=== PATIENT | male | born 1995 | race Two or more races ===

== ENCOUNTER 2021-10-02 12:20 | Inpatient (IN) | payer BC ==
[~2021-10-02] VITALS: Ht 149.9 cm; Wt 61.4 kg
[2021-10-02 12:51] LABS: BASOPHILS % (AUTO) 0.5 % (0-1); EOSINOPHILS # (AUTO) 0.1 X10'3 (0-0.9); HEMATOCRIT 41.7 % (42.0-52.0); HEMOGLOBIN 13.8 g/dl (14.0-17.9); LYMPHOCYTES # (AUTO) 1.9 X10'3 (1.1-4.8); LYMPHOCYTES % (AUTO) 40.7 % (21-51); MEAN CORPUSCULAR HEMOGLOBIN 25.1 PG (27.0-31.0); MEAN CORPUSCULAR HGB CONC 32.9 g/dL (33.0-36.5); MEAN CORPUSCULAR VOLUME 76.2 FL (78-98); MEAN PLATELET VOLUME 7.4 FL (7.4-10.4); MONOCYTES # (AUTO) 0.4 X10'3 (0-0.9); MONOCYTES % (AUTO) 9.4 % (2-12); NEUTROPHILS # (AUTO) 2.2 X10'3 (1.8-7.7); NEUTROPHILS % (AUTO) 47.4 % (42-75); PLATELET COUNT 311 X10'3 (140-440); RED BLOOD COUNT 5.48 X10'6 (4.70-6.10); RED CELL DISTRIBUTION WIDTH 14.3 % (11.5-14.5); WHITE BLOOD COUNT 4.7 X10'3 (4.5-11.0)
[2021-10-02 13:08] LABS: ALANINE AMINOTRANSFERASE 25 U/L (12-78); ALBUMIN 4.3 G/DL (3.4-5.0); ALKALINE PHOSPHATASE 85 IU/L (46-116); ANION GAP 9 (8-16); ASPARTATE AMINO TRANSFERASE 17 U/L (10-37); BILIRUBIN,TOTAL 0.3 MG/DL (0.1-1.0); BLOOD UREA NITROGEN 13 MG/DL (7-18); BUN/CREATININE RATIO 14.1 (5.4-32.0); CALCIUM 9.1 MG/DL (8.5-10.1); CHLORIDE 104 MMOL/L (99-107); CREATININE 0.92 MG/DL (0.60-1.10); GLUCOSE 93 MG/DL (70-104); POTASSIUM 3.7 MMOL/L (3.5-5.1); SODIUM 139 MMOL/L (135-145); TOTAL CARBON DIOXIDE 25.8 MMOL/L (24-32); TOTAL PROTEIN 8.6 G/DL (6.4-8.2); eGFR > 90 ML/MIN
[2021-10-02 13:54] LABS: CLARITY,URINE CLEAR (Clear); COLOR,URINE YELLOW (Yellow); GLUCOSE, URINE NEGATIVE (Neg); KETONES,URINE NEGATIVE (Neg); LEUKOCYTE ESTERASE ,URINE NEGATIVE (Neg); NITRITES, URINE NEGATIVE (Neg); OCCULT BLOOD,URINE NEGATIVE (Neg); PROTEIN,URINE NEGATIVE (Neg); UROBILINOGEN,URINE 0.2 E.U/dL (0.2-1.0)
[2021-10-02 14:09] LABS: UA COLLECTION TYPE NON-SPECIFIED
[2021-10-02] MEDS ORDERED: normal saline 1000ML IV soln IVB ONE (14:40)
[2021-10-02] MEDS ORDERED: ketorolac tromethamine 15mg/ml inj. IV ONE (14:40)
[2021-10-02] MEDS ORDERED: iohexol 300mg/ml 100ml inj. ONE (14:54)
[2021-10-02] MEDS ORDERED: ketorolac trometh. 30mg/ml inj. IV ONE (15:05)
--- NOTE | 2021-10-02 15:51 | NUR ---
PT TO CT
--- NOTE | 2021-10-02 16:05 | NUR ---
RETURNED FROM CT WITHOUT INCIDENT, FLUIDS RE-STARTED.
--- NOTE | 2021-10-02 16:42 | NUR ---
ADMITTING PROVIDER AT BEDSIDE
[2021-10-02] MEDS ORDERED: NO HOME MEDS (17:00)
[2021-10-02] MEDS ORDERED: magnesium 2GM in 50ml NS 50 ML IV PRN (17:50)
[2021-10-02] MEDS ORDERED: magnesium Cl slow-release 64mg tablet PO PRN (17:50)
[2021-10-02] MEDS ORDERED: potassium CL 10mEq/100ml bag 100 ML IV PRN (17:50)
[2021-10-02] MEDS ORDERED: acetaminophen 325mg tablet PO PRN (17:50)
[2021-10-02] MEDS ORDERED: potassium Cl 20 mEq SR tablet PO PRN ×2 (17:50)
[2021-10-02] MEDS ORDERED: magnesium 4gm in 100ml NS 100 ML IV PRN (17:50)
[2021-10-02] MEDS: morphine 2 MG/ML inj. syringe IV PRN ×2 (19:18→23:04)
[2021-10-02] MEDS: ondansetron/PF 4mg/2ml inj IV PRN (19:18)
[2021-10-02 19:20] LABS: MAGNESIUM 2.1 MG/DL (1.5-2.4)
[2021-10-02] MEDS: K and/or MAG REPLACEMENT MC SCH (20:00)
[2021-10-02] MEDS: normal saline 1000ml 1,000 ML IV SCH (21:00)
[2021-10-02 21:13] VITALS: BP 130/83
[2021-10-03] VITALS: BP 105/64
[2021-10-03] MEDS: morphine 2 MG/ML inj. syringe IV PRN ×5 (03:04→23:57)
[2021-10-03] MEDS: normal saline 1000ml 1,000 ML IV SCH ×3 (05:28→16:50)
[2021-10-03 06:04] LABS: HEMOGLOBIN 11.5 g/dl (14.0-17.9); LYMPHOCYTES # (AUTO) 2.3 X10'3 (1.1-4.8); MEAN CORPUSCULAR VOLUME 77.3 FL (78-98); MEAN PLATELET VOLUME 8.7 FL (7.4-10.4); MONOCYTES # (AUTO) 0.5 X10'3 (0-0.9); WHITE BLOOD COUNT 4.2 X10'3 (4.5-11.0)
[2021-10-03 06:05] LABS: ANION GAP 14 (8-16); BLOOD UREA NITROGEN 12 MG/DL (7-18); BUN/CREATININE RATIO 16.7 (5.4-32.0); CALCIUM 7.6 MG/DL (8.5-10.1); CHLORIDE 108 MMOL/L (99-107); CREATININE 0.72 MG/DL (0.60-1.10); GLUCOSE 71 MG/DL (70-104); POTASSIUM 3.7 MMOL/L (3.5-5.1); SODIUM 142 MMOL/L (135-145); TOTAL CARBON DIOXIDE 20.1 MMOL/L (24-32); eGFR > 90 ML/MIN
[2021-10-03 06:08] LABS: BASOPHILS % (AUTO) 0.6 % (0-1); EOSINOPHILS # (AUTO) 0.1 X10'3 (0-0.9); EOSINOPHILS % (AUTO) 3.3 % (0-6); HEMATOCRIT 34.3 % (42.0-52.0); LYMPHOCYTES % (AUTO) 53.7 % (21-51); MEAN CORPUSCULAR HGB CONC 33.6 g/dL (33.0-36.5); NEUTROPHILS # (AUTO) 1.3 X10'3 (1.8-7.7); NEUTROPHILS % (AUTO) 31.4 % (42-75); PLATELET COUNT 158 X10'3 (140-440); RED BLOOD COUNT 4.44 X10'6 (4.70-6.10); RED CELL DISTRIBUTION WIDTH 14.3 % (11.5-14.5)
--- NOTE | 2021-10-03 06:20 | NUR ---
Problems reprioritized. Patient report given, questions answered & plan of care reviewed with IDALMIS Jaffe. Addendum: 10/03/21 at 2018 by Azalia Waddell RN [facility], wrong time
[2021-10-03 06:30] VITALS: BP 104/82
--- NOTE | 2021-10-03 06:30 | NUR ---
Patient in room [facility]. I have received report from IDALMIS Cesar and had the opportunity to ask questions and assume patient care.
[2021-10-03] MEDS: K and/or MAG REPLACEMENT MC SCH ×2 (07:31→20:00)
[2021-10-03] MEDS: ondansetron/PF 4mg/2ml inj IV PRN (09:35)
[2021-10-03 11:00] VITALS: BP 100/69
[2021-10-03] MEDS: diatr meglu/diatrizoate 30ml oral sol.-(3 dose) bottle PO SCH ×3 (11:09→16:37)
--- NOTE | 2021-10-03 18:20 | NUR ---
Problems reprioritized. Patient report given, questions answered & plan of care reviewed with IDALMIS Jaffe.
[2021-10-03 19:45] VITALS: BP 103/62
[2021-10-03] MEDS ORDERED: ketorolac trometh. 30mg/ml inj. IM PRN (20:00)
[2021-10-04] VITALS: BP 89/56
[2021-10-04 05:49] LABS: BASOPHILS % (AUTO) 0.6 % (0-1); EOSINOPHILS # (AUTO) 0.1 X10'3 (0-0.9); EOSINOPHILS % (AUTO) 3.2 % (0-6); HEMOGLOBIN 11.2 g/dl (14.0-17.9); LYMPHOCYTES % (AUTO) 54.1 % (21-51); MEAN CORPUSCULAR HEMOGLOBIN 25.4 PG (27.0-31.0); MEAN CORPUSCULAR HGB CONC 32.9 g/dL (33.0-36.5); MEAN CORPUSCULAR VOLUME 77.2 FL (78-98); MEAN PLATELET VOLUME 7.7 FL (7.4-10.4); MONOCYTES # (AUTO) 0.4 X10'3 (0-0.9); MONOCYTES % (AUTO) 11.4 % (2-12); NEUTROPHILS # (AUTO) 1.1 X10'3 (1.8-7.7); NEUTROPHILS % (AUTO) 30.7 % (42-75); PLATELET COUNT 224 X10'3 (140-440); RED CELL DISTRIBUTION WIDTH 14.3 % (11.5-14.5); WHITE BLOOD COUNT 3.6 X10'3 (4.5-11.0)
[2021-10-04 05:54] LABS: ALBUMIN 2.8 G/DL (3.4-5.0); ANION GAP 6 (8-16); BLOOD UREA NITROGEN 6 MG/DL (7-18); BUN/CREATININE RATIO 7.2 (5.4-32.0); CALCIUM 7.6 MG/DL (8.5-10.1); CHLORIDE 110 MMOL/L (99-107); CREATININE 0.83 MG/DL (0.60-1.10); GLUCOSE 79 MG/DL (70-104); POTASSIUM 3.7 MMOL/L (3.5-5.1); SODIUM 141 MMOL/L (135-145); TOTAL CARBON DIOXIDE 25.5 MMOL/L (24-32); eGFR > 90 ML/MIN
--- NOTE | 2021-10-04 06:10 | NUR ---
Patient in room [facility]. I have received report from IDALMIS Jaffe and had the opportunity to ask questions and assume patient care.
[2021-10-04 06:30] VITALS: BP 102/69
[2021-10-04] MEDS: K and/or MAG REPLACEMENT MC SCH (07:10)
[2021-10-04] MEDS: ketorolac trometh. 30mg/ml inj. IV PRN ×2 (07:36→14:00)
[2021-10-04 08:11] LABS: LARGE PLATELETS FEW; PLATELET ESTIMATE NORMAL; TOTAL CELLS COUNTED 100
[2021-10-04] MEDS: normal saline 1000ml 1,000 ML IV SCH (09:50)
[2021-10-04 11:00] VITALS: BP 120/77
[2021-10-04] MEDS ORDERED: LEVO500T90 PO (11:28)
[2021-10-04] MEDS ORDERED: METR-159 PO (11:28)
--- NOTE | 2021-10-04 14:40 | NUR ---
DC inst provided to pt. IV DC'd, tip intact. All belongings sent w/pt. Pt ambulated to vehicle.
== END 2021-10-04 14:30 | disposition home or self-care (01) | DRG 392 ==
LOC: ER 12:21 → ED HOLD 17:50 → SUR 3N 20:30
PROVIDERS: ADMIT Internal Medicine; ATTEND Internal Medicine
PROC: BW211ZZ Computerized Tomography (CT Scan) of Abdomen and Pelvis using Low Osmolar Contrast (ICD-10-PCS; principal; 2021-10-02)
DX: R10.31 Right lower quadrant pain (principal); Q43.0 Meckel's diverticulum (displaced) (hypertrophic)
CPT/HCPCS: 36415; 74176; 74177; 80048; 80053; 81003; 83605; 83735; 84145; 85007; 85025; 87040; 87081; 96374; 99285; G0378; J1885; J2270; J2405; J7030; Q9963; Q9967

== ENCOUNTER 2022-02-14 10:37 | Emergency (ER) | payer SELFPAY ==
[~2022-02-14] VITALS: Ht 149.9 cm; Wt 58.2 kg
[~2022-02-14 10:37] MED LIST: NO HOME MEDS
[2022-02-14 10:49] VITALS: BP 126/85
[2022-02-14] MEDS ORDERED: ketorolac trometh. 30mg/ml inj. IM ONE (11:10)
[2022-02-14] MEDS ORDERED: orphenadrine citrate 60mg/2ml inj. IM ONE (11:25)
[2022-02-14 11:47] LABS: CLARITY,URINE CLEAR (Clear); COLOR,URINE YELLOW (Yellow); GLUCOSE, URINE NEGATIVE (Neg); KETONES,URINE NEGATIVE (Neg); LEUKOCYTE ESTERASE ,URINE NEGATIVE (Neg); NITRITES, URINE NEGATIVE (Neg); OCCULT BLOOD,URINE NEGATIVE (Neg); PROTEIN,URINE NEGATIVE (Neg); UROBILINOGEN,URINE 0.2 E.U/dL (0.2-1.0)
[2022-02-14 11:49] LABS: UA COLLECTION TYPE NON-SPECIFIED
[2022-02-14] MEDS ORDERED: IBUP-1986 PO (12:12)
[2022-02-14] MEDS ORDERED: CYCL-394 PO (12:12)
== END 2022-02-14 12:28 | disposition home or self-care (01) ==
LOC: ER 10:38
DX: M54.59 Other low back pain (principal); K59.00 Constipation, unspecified
CPT/HCPCS: 81003; 96372; 99284; J1885; J2360

== ENCOUNTER 2022-05-03 09:32 | Emergency (ER) | payer MEDICAID ==
[~2022-05-03] VITALS: Ht 149.9 cm; Wt 56.8 kg
[~2022-05-03 09:32] MED LIST changes: +IBUP-1986 PO
[2022-05-03 09:38] VITALS: BP 154/121
[2022-05-03] MEDS ORDERED: LORazepam 1 MG tablet PO ONE (09:55)
[2022-05-03 10:15] LABS: ALANINE AMINOTRANSFERASE 21 U/L (12-78); ALBUMIN 4.5 G/DL (3.4-5.0); ALBUMIN/GLOBULIN RATIO 1.1 (1.1-1.5); ALKALINE PHOSPHATASE 78 IU/L (46-116); ANION GAP 10 (8-16); ASPARTATE AMINO TRANSFERASE 24 U/L (10-37); BILIRUBIN,TOTAL 0.4 MG/DL (0.1-1.0); BLOOD UREA NITROGEN 13 MG/DL (7-18); BUN/CREATININE RATIO 15.3 (5.4-32.0); CHLORIDE 103 MMOL/L (99-107); CREATININE 0.85 MG/DL (0.60-1.10); GLUCOSE 108 MG/DL (70-104); POTASSIUM 3.7 MMOL/L (3.5-5.1); SODIUM 139 MMOL/L (135-145); TOTAL CARBON DIOXIDE 26.2 MMOL/L (24-32); TOTAL PROTEIN 8.5 G/DL (6.4-8.2); eGFR > 90 ML/MIN
[2022-05-03 10:17] LABS: UA COLLECTION TYPE CLN CATCH MIDSTREAM
[2022-05-03 10:18] LABS: BASOPHILS % (AUTO) 0.6 % (0-1); EOSINOPHILS % (AUTO) 0.7 % (0-6); HEMATOCRIT 42.7 % (42.0-52.0); HEMOGLOBIN 14.1 g/dl (14.0-17.9); LYMPHOCYTES # (AUTO) 1.8 X10'3 (1.1-4.8); LYMPHOCYTES % (AUTO) 32.4 % (21-51); MEAN CORPUSCULAR HEMOGLOBIN 24.9 PG (27.0-31.0); MEAN CORPUSCULAR HGB CONC 33.1 g/dL (33.0-36.5); MEAN CORPUSCULAR VOLUME 75.1 FL (78-98); MEAN PLATELET VOLUME 7.6 FL (7.4-10.4); MONOCYTES # (AUTO) 0.4 X10'3 (0-0.9); MONOCYTES % (AUTO) 7.3 % (2-12); NEUTROPHILS # (AUTO) 3.2 X10'3 (1.8-7.7); PLATELET COUNT 322 X10'3 (140-440); RED BLOOD COUNT 5.69 X10'6 (4.70-6.10); RED CELL DISTRIBUTION WIDTH 15.5 % (11.5-14.5); WHITE BLOOD COUNT 5.5 X10'3 (4.5-11.0)
[2022-05-03 10:18] LABS: CLARITY,URINE CLEAR (Clear); COLOR,URINE YELLOW (Yellow); GLUCOSE, URINE NEGATIVE (Neg); KETONES,URINE 40 mg/dl (Neg); LEUKOCYTE ESTERASE ,URINE NEGATIVE (Neg); NITRITES, URINE NEGATIVE (Neg); OCCULT BLOOD,URINE NEGATIVE (Neg); PROTEIN,URINE NEGATIVE (Neg); UROBILINOGEN,URINE 0.2 E.U/dL (0.2-1.0)
[2022-05-03 10:23] LABS: ETHANOL < 0.010 GM/DL (0.0-0.010)
[2022-05-03 10:28] LABS: URINE AMPHETAMINE SCREEN NEGATIVE (Neg); URINE BARBITUATE SCREEN NEGATIVE (Neg); URINE BENZODIAZEPINES SCREEN NEGATIVE (Neg); URINE CANNABINOID SCREEN NEGATIVE (Neg); URINE COCAINE SCREEN NEGATIVE (Neg); URINE METHADONE SCREEN NEGATIVE (Neg); URINE OPIATE SCREEN NEGATIVE (Neg); URINE PHENCYCLIDINE SCREEN NEGATIVE (Neg)
--- NOTE | 2022-05-03 10:42 | NUR ---
Per pt. no information is to be given to Henri George (boyfriend) for the time being.
--- NOTE | 2022-05-03 10:45 | NUR ---
Patient crying and RN at bedside. Patient states he feels hopeless and helpless. Patient gave his house to his 5 year live in boyfriend and now he has someone else living there. Patient states his best friend committed suicide about 2 months ago. Patient doesn't have any friends and feels all alone. Patient's family lives in [place] and they have disowned him. Patient states he has nothing to live for. 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 Patient has HX of HIV.
[2022-05-03] MEDS ORDERED: EMTR1TAB24 PO (11:12)
[2022-05-03] MEDS ORDERED: RALT400T PO (11:12)
--- NOTE | 2022-05-03 11:18 | NUR ---
Patient's friend, [place], visiting patient. No distress observed at this time.
--- NOTE | 2022-05-03 12:08 | NUR ---
Patient eating lunch. No distress observed. Continue to monitor.
--- NOTE | 2022-05-03 12:29 | NUR ---
Jose PATEL, evaluating patient. Continue to monitor.
--- NOTE | 2022-05-03 13:15 | NUR ---
[facility] [place] [facility] Continue to monitor.
[2022-05-03] MEDS ORDERED: HYDR-3686 PO (13:30)
[2022-05-03] MEDS ORDERED: raltegravir 400mg tablet PO SCH (20:00)
[2022-05-04] MEDS ORDERED: emtricitabine/tenofovir 200mg/300mg tablet PO SCH (08:00)
== END 2022-05-03 13:54 | disposition home or self-care (01) ==
LOC: ER 09:32
DX: R45.851 Suicidal ideations (principal); F41.9 Anxiety disorder, unspecified; R10.32 Left lower quadrant pain; R11.0 Nausea; Z98.890 Other specified postprocedural states; Z79.899 Other long term (current) drug therapy
CPT/HCPCS: 36415; 80053; 80305; 80320; 81003; 84443; 85025; 99285